=== PATIENT | male | born 1955 ===

== ENCOUNTER 2018-02-04 11:33 | Emergency (ER) | payer MEDICAID ==
[2018-02-04 11:43] VITALS: BMI 33.7
[2018-02-04 11:58] VITALS: RESP 20
[2018-02-04 12:16] LABS: BASO # 0.1 K/uL (0.0-0.2); EOS # 0.4 K/uL (0.0-0.7); EOS % 5.2 % (0.0-4.0); LYMPH # 1.7 K/uL (1.0-4.3); LYMPH % 23.9 % (20.0-40.0); MEAN CELL VOLUME 93.4 fL (80.0-94.0); MEAN CORPUSCULAR HEMOGLOBIN 31.7 pg (27.0-31.0); MEAN PLATELET VOLUME 8.2 fL (7.2-11.7); MONO # 0.5 K/uL (0.0-0.8); MONO % 7.3 % (0.0-10.0); NEUT # 4.4 K/uL (1.8-7.0); NEUT % 62.6 % (50.0-75.0); NRBC % 0.1 % (0.0-2.0); RBC 5.37 Mil/uL (4.40-5.90); RED CELL DISTRIBUTION WIDTH 14.3 % (11.5-14.5)
--- NOTE | 2018-02-04 12:25 | RAD ---
HISTORY: Shortness of breath COMPARISON: No prior. TECHNIQUE: Chest PA and lateral FINDINGS: LINES AND TUBES: None. LUNG AND PLEURA: The lungs are well inflated and clear. No pleural effusion or pneumothorax. HEART AND MEDIASTINUM: The heart is not enlarged. No aortic atherosclerotic calcification present. The hilar and mediastinal contours are within normal limits. SKELETAL STRUCTURES: The bony structures are within normal limits for the patient's age. VISUALIZED UPPER ABDOMEN: Normal. OTHER FINDINGS: None. IMPRESSION: No active pulmonary disease.
[2018-02-04 12:28] LABS: ALB/GLOB RATIO 1.3 (1.0-2.1); ALBUMIN 4.1 g/dL (3.5-5.0); ALT/SGPT 20 U/L (21-72); AST/SGOT 19 U/L (17-59); BLOOD UREA NITROGEN 14 mg/dL (9-20); CALCIUM 9.1 mg/dl (8.6-10.4); GFR NON-AFRICAN AMERICAN > 60
[2018-02-04] MEDS ORDERED: Albuterol-Ipratrop 3 mg / 0.5 (3 ml) UD INH STA ×2 (12:28→13:48)
--- NOTE | 2018-02-04 12:28 | C.PDOC ---
History Of Present Illness 62 year old male presents to the ED with complaints of a cough productive of white sputum that started 3 weeks ago after he got caught up in the rain. He also complains of chest pain when coughing and is not able to sleep because of the cough. Additionally, he complains of SOB on exertion, with decreased exercise tolerance of about 5-10 minutes. Patient visited his PMD last week and was prescribed a course of Zithromax with minimal relief. He has also been using his albuterol inhaler and nebulizer treatments at home with no significant improvement. Patient is a smoker. Denies any leg pain/swelling, fever, dizziness, nausea, and vomiting. Time Seen by Provider: 02/04/18 11:44 Chief Complaint (Nursing): Shortness Of Breath History Per: Patient History/Exam Limitations: no limitations Onset/Duration Of Symptoms: Days Current Symptoms Are (Timing): Still Present Current Respiratory Medications: Albuterol Associated Symptoms: Chest Pain, Productive Cough (white sputum). denies: Fever, Leg/Calf Pain, Dizziness Reports Recently: Treated By A Physician Recent travel outside of the [place]: No Past Medical History Reviewed: Historical Data, Nursing Documentation, Vital Signs Vital Signs: Last Vital Signs Temp 97.8 F 02/04/18 11:40 Pulse 79 02/04/18 11:57 Resp 20 02/04/18 11:57 BP 169/103 H 02/04/18 11:57 Pulse Ox 96 02/04/18 11:57 - Medical History PMH: Asthma, HTN Family History: States: No Known Family Hx - Social History Hx Alcohol Use: No Hx Substance Use: No Review Of Systems Constitutional: Positive for: Chills. Negative for: Fever Cardiovascular: Positive for: Chest Pain (when coughing). Negative for: Palpitations Respiratory: Positive for: Cough, SOB with Excertion, Sputum Gastrointestinal: Negative for: Nausea, Vomiting, Diarrhea Neurological: Negative for: Weakness, Numbness, Dizziness Physical Exam - Physical Exam Appears: Non-toxic, No Acute Distress Skin: Normal Color, Warm, Dry Head: Atraumatic, Normacephalic Eye(s): bilateral: PERRL, EOMI Oral Mucosa: Moist Neck: Normal ROM, Supple Chest: Symmetrical, No Tenderness Cardiovascular: Rhythm Regular, No Murmur Respiratory: Decreased Breath Sounds, No Accessory Muscle Use, Rhonchi (scattered), Wheezing (Bilateral inspiratory and expiratory wheezing, worse on expiration) Gastrointestinal/Abdominal: Bowel Sounds, Soft, No Tenderness, No Distention Back: No CVA Tenderness Extremity: Normal ROM, No Pedal Edema, No Calf Tenderness, No Swelling Extremity: Bilateral: Atraumatic Neurological/Psych: Oriented x3, Normal Speech, Normal Cognition Gait: Steady ED Course And Treatment - Laboratory Results Result Diagrams: 02/04/18 12:11 02/04/18 12:11 O2 Sat by Pulse Oximetry: 96 (RA) Pulse Ox Interpretation: Normal - Radiology CXR: Viewed By Me, Read By Radiologist CXR Interpretation: Yes: No Acute Disease Medical Decision Making Medical Decision Making: Impression: 62 year old male presents to the ED with cough and SOB for 3 weeks. Will consider asthma vs COPD exacerbation, r/o CHF Plan: -EKG -B-Type Natriuretic Peptide -CMP -Troponin I -CBC -CXR -Albuterol 3 ml -Methylpredinsolone 125 mg -Nebulizer Treatment -Peak Flow Pre/Post Differential Diagnosis: CXR is negative. 1345 pt with some wheezing still after steroids nd neb, another neb ordered as well as peak flow. 1525 pt still with wheezing in [place] with dec breath sounds. o2 sat 91 on room air, pt with pf of 200 with fair effort. pt offered admission and adamantly refuses to stay. risks and benefits of ama including respiratory distress, disability and explained to patient in presence of GRADY Barriga and pt's . pt sts he will follow up with Dr Wilson/med clinic next week 02/09 at schedule appointment. pt advised he may return at any time for treatments. Disposition Counseled Patient/Family Regarding: Studies Performed, Diagnosis, Need For Followup, Rx Given - Disposition Referrals: Gloria Wilson MD [Staff Provider] - [facility] at [facility] [Outside] Bj Fernandes MD [Staff Provider] - Disposition: AGAINST MEDICAL ADVICE Disposition Time: 15:28 Condition: FAIR Additional Instructions: Please take prednisone as prescribed. Use nebulizer machine 2 times a day. Carry inhaler with you and use 2 puffs every 4-6 hours if short of breath. Use inhaler 1-2 times per day. Recommend you get Pulmonary function tests; may need referral from Dr Wilson to pulmonology or make your ow appointment with loan manager if possible. Prescriptions: Albuterol 0.083% [Albuterol 0.083% Inhal Barbara (2.5 mg/3 ml) UD] 2.5 mg IH BID #100 neb Albuterol HFA [Ventolin HFA 90 mcg/actuation (8 g)] 2 puff IH Q6 #1 inhaler predniSONE [predniSONE Tab] 40 mg PO DAILY #10 tab Instructions: High Blood Pressure (DC), Exacerbation of COPD (DC) Forms: [employer] [facility] (Sami), General Discharge Instructions Print Language: DANISH - Clinical Impression Clinical Impression: COPD with acute exacerbation, Hypertension, Left against medical advice - PA / QUALITY CONTROL OPERATOR / Resident Statement MD/DO has reviewed & agrees with the documentation as recorded. - Scribe Statement The provider has reviewed the documentation as recorded by the Scribe (Jacki Lorenzo) All medical record entries made by the Scribe were at my direction and personally dictated by me. I have reviewed the chart and agree that the record accurately reflects my personal performance of the history, physical exam, medical decision making, and the department course for this patient. I have also personally directed, reviewed, and agree with the discharge instructions and disposition.
[2018-02-04] MEDS ORDERED: MethylPREDNISolone 40 mg Vial IVP STA (12:29)
[2018-02-04] MEDS ORDERED: Albuterol-Ipratrop 3 mg / 0.5 (3 ml) UD ONE ×2 (12:51→13:53)
[2018-02-04 14:40] VITALS: TEMP 98.5
[2018-02-04 15:09] VITALS: BP 175/94; PULSE 83
[2018-02-04 15:28] VITALS: O2SAT 96
== END 2018-02-04 15:46 | disposition left against medical advice (07) ==
LOC: C.ER 11:33
DX: I10 Essential (primary) hypertension (principal); F17.210 Nicotine dependence, cigarettes, uncomplicated; J44.1 Chronic obstructive pulmonary disease with (acute) exacerbation
CPT/HCPCS: 71046; 80053; 83880; 84484; 85025; 94640; 96374; 99285; J2920

== ENCOUNTER 2018-02-06 10:10 | Emergency (ER) | payer MEDICAID ==
[2018-02-06 10:10] VITALS: BMI 33.7
[2018-02-06 10:46] VITALS: O2SAT 97
[2018-02-06] MEDS ORDERED: Albuterol-Ipratrop 3 mg / 0.5 (3 ml) UD INH STA (11:01)
[2018-02-06] MEDS ORDERED: Albuterol-Ipratrop 3 mg / 0.5 (3 ml) UD ONE ×2 (11:07→11:20)
[2018-02-06 12:25] VITALS: BP 145/79; PULSE 92; RESP 18; TEMP 98.5
--- NOTE | 2018-02-06 12:48 | C.PDOC ---
History Of Present Illness 62 years old male presents to ED for complaints of persistent cough that began 3 days ago. Patient states he was seen 3 days ago for COPD exacerbation which has improved however he has been having continuous cough with no improvement. Patient has Hx of 45 packs a year and currently states 1 pack per day. Denies any other physical complaints. Chief Complaint (Nursing): Shortness Of Breath History Per: Patient History/Exam Limitations: no limitations Onset/Duration Of Symptoms: Hrs Current Symptoms Are (Timing): Still Present Current Respiratory Medications: See Home Med List Associated Symptoms: denies: Fever, Chills Recent travel outside of the [place]: No Past Medical History Reviewed: Historical Data, Nursing Documentation, Vital Signs Vital Signs: Last Vital Signs Temp 98.5 F 02/06/18 12:23 Pulse 92 H 02/06/18 12:23 Resp 18 02/06/18 12:23 BP 145/79 02/06/18 12:23 Pulse Ox 97 02/06/18 12:23 - Medical History PMH: Asthma, HTN Surgical History: No Surg Hx Family History: States: No Known Family Hx - Social History Hx Alcohol Use: No Hx Substance Use: No - Immunization History Hx Tetanus Toxoid Vaccination: No Hx Influenza Vaccination: No Hx Pneumococcal Vaccination: No Review Of Systems Constitutional: Negative for: Fever, Chills Respiratory: Positive for: Cough Gastrointestinal: Negative for: Nausea, Vomiting, Abdominal Pain, Diarrhea Skin: Negative for: Rash Neurological: Negative for: Weakness, Numbness Physical Exam - Physical Exam Appears: Well, Non-toxic, No Acute Distress Skin: Normal Color, Warm, Dry, No Rash Head: Atraumatic, Normacephalic Eye(s): bilateral: Normal Inspection, PERRL, EOMI Oral Mucosa: Moist Throat: Normal, No Erythema, No Exudate, No Drooling, No Mass Neck: Normal ROM, Supple Chest: Symmetrical, No Tenderness Cardiovascular: Rhythm Regular, No Murmur Respiratory: No Decreased Breath Sounds, No Rales, No Rhonchi, Wheezing (Minimal expiratory bilaterally ) Gastrointestinal/Abdominal: Normal Exam, Bowel Sounds (Active ), Soft, No Tenderness, No Guarding, No Rebound Extremity: Bilateral: Atraumatic, Normal Color And Temperature, Normal ROM Pulses: Left Radial: Normal, Right Radial: Normal Neurological/Psych: Oriented x3, Normal Speech Gait: Steady ED Course And Treatment O2 Sat by Pulse Oximetry: 97 (RA) Pulse Ox Interpretation: Normal - Other Rad CXR X-Ray: Viewed By Me, Read By Radiologist Interpretation: Date of service: 02/06/2018. HISTORY: cough r/o infiltrate. COMPARISON: 02/04/2018. TECHNIQUE: Chest PA and lateral. FINDINGS: LUNGS: Mild patchy increased markings and/or linear consolidation at the left lung base. Upper lobe granulomatous changes. Small nodular density at the right lung base may represent vessel on end. PLEURA: No significant pleural effusion identified. No pneumothorax apparent. CARDIOVASCULAR: No atherosclerotic calcification present. Tortuous ectatic aorta. OSSEOUS STRUCTURES: Degenerative changes in the spine. Paravertebral osteophytosis in the spine. VISUALIZED UPPER ABDOMEN: Normal. OTHER FINDINGS: None. IMPRESSION: Mild patchy increased markings and/or linear consolidation at the left lung base. Upper lobe granulomatous changes. Small nodular density at the right lung base may represent vessel on end. Medical Decision Making Medical Decision Making: Plan: * CXR * Albuterol Re-Evaluation: Patient's lungs are clear, he states he currently feels better after treatment. Patient is stable for discharged. Instructed to return if symptoms persist or worsen. Disposition - Disposition Referrals: [facility]ajero, [Non-Staff] - Disposition: HOME/ ROUTINE Disposition Time: 11:50 Condition: IMPROVED Additional Instructions: CARLO JACKSON, thank you for letting us take care of you today. The emergency medical care you received today was directed at your acute symptoms. If you were prescribed any medication, please fill it and take as directed. It may take several days for your symptoms to resolve. Return to the Emergency Department if your symptoms worsen, do not improve, or if you have any other problems. Please contact your doctor or call one of the physicians/clinics you have been referred to that are listed on the Patient Visit Information form that is included in your discharge packet. Bring any paperwork you were given at discharge with you along with any medications you are taking to your follow up visit. Our treatment cannot replace ongoing medical care by a primary care provider outside of the emergency department. Thank you for allowing the [facility] team to be part of your care today. Follow up with physicians that you were referred to at the previous ED visit. Prescriptions: Benzonatate [Tessalon Perle] 100 mg PO Q8 PRN #15 capsule PRN Reason: Cough Instructions: COPD Including Emphysema (DC), Quitting Smoking Forms: [employer] (Lao) - Clinical Impression Clinical Impression: COPD with acute exacerbation - Scribe Statement The provider has reviewed the documentation as recorded by the Silvanoibdavid De Santiago All medical record entries made by the Scribe were at my direction and personally dictated by me. I have reviewed the chart and agree that the record accurately reflects my personal performance of the history, physical exam, medical decision making, and the department course for this patient. I have also personally directed, reviewed, and agree with the discharge instructions and disposition.
--- NOTE | 2018-02-06 15:59 | RAD ---
Date of service: 02/06/2018 HISTORY: cough r/o infiltrate COMPARISON: 02/04/2018 TECHNIQUE: Chest PA and lateral FINDINGS: LUNGS: Mild patchy increased markings and/or linear consolidation at the left lung base. Upper lobe granulomatous changes. Small nodular density at the right lung base may represent vessel on end. PLEURA: No significant pleural effusion identified. No pneumothorax apparent. CARDIOVASCULAR: No atherosclerotic calcification present Tortuous ectatic aorta. OSSEOUS STRUCTURES: Degenerative changes in the spine. Paravertebral osteophytosis in the spine. VISUALIZED UPPER ABDOMEN: Normal. OTHER FINDINGS: None. IMPRESSION: Mild patchy increased markings and/or linear consolidation at the left lung base. Upper lobe granulomatous changes. Small nodular density at the right lung base may represent vessel on end.
== END 2018-02-06 12:23 | disposition home or self-care (01) ==
LOC: C.ER 10:10
DX: J44.1 Chronic obstructive pulmonary disease with (acute) exacerbation (principal); F17.210 Nicotine dependence, cigarettes, uncomplicated

== ENCOUNTER 2018-05-19 09:30 | Emergency (ER) | payer MEDICAID ==
[2018-05-19 09:31] VITALS: BMI 33.7
[2018-05-19 09:41] VITALS: BP 201/106; PULSE 83; RESP 20; TEMP 97.5; O2SAT 97
[2018-05-19] MEDS ORDERED: Naproxen 550 mg Tab PO STA (10:02)
[2018-05-19] MEDS ORDERED: Aluminum Hydroxide/Magnesium Hydroxide Susp (30 mL) PO STA (10:02)
[2018-05-19] MEDS ORDERED: Aluminum Hydroxide/Magnesium Hydroxide Susp (30 mL) ONE (10:08)
[2018-05-19] MEDS ORDERED: Naproxen 550 mg Tab PO ONE (10:08)
--- NOTE | 2018-05-19 10:12 | C.PDOC ---
History Of Present Illness 62 y/o male,w/PMhx of HTN and osteoarthritis, presents to the ER complaining of right knee pain and swelling which began today. 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 Patient reports that the pain is worse when it's cold. He notes that the knee is " clicking and locked in place." He has Naproxen medication, however he did not take the medication because it is from 2018.Denies having fever and chills.Of note, patient's blood pressure is currently elevated in the ER. Time Seen by Provider: 05/19/18 09:36 Chief Complaint (Nursing): Lower Extremity Problem/Injury History Per: Patient History/Exam Limitations: no limitations Onset/Duration Of Symptoms: Days Current Symptoms Are (Timing): Still Present Severity: Moderate Past Medical History Reviewed: Historical Data, Nursing Documentation, Vital Signs Vital Signs: Last Vital Signs Temp 97.5 F L 05/19/18 09:40 Pulse 83 05/19/18 09:40 Resp 20 05/19/18 09:40 BP 201/106 H 05/19/18 09:40 Pulse Ox 97 05/19/18 09:40 - Medical History PMH: Asthma, HTN Surgical History: No Surg Hx Family History: States: No Known Family Hx - Social History Hx Alcohol Use: No Hx Substance Use: No - Immunization History Hx Tetanus Toxoid Vaccination: No Hx Influenza Vaccination: No Hx Pneumococcal Vaccination: No Review Of Systems Except As Marked, All Systems Reviewed And Found Negative. Constitutional: Negative for: Fever, Chills Musculoskeletal: Positive for: Other (right knee pain) Neurological: Negative for: Weakness, Numbness Physical Exam - Physical Exam Appears: Non-toxic, No Acute Distress Skin: Normal Color, Warm, Dry Head: Atraumatic, Normacephalic Nose: Normal Oral Mucosa: Moist Neck: Supple Chest: Symmetrical Cardiovascular: Rhythm Regular Extremity: No Normal ROM (mild decreased ROM in right knee), No Tenderness, No Swelling Neurological/Psych: Oriented x3, Normal Speech, Normal Motor, Normal Sensation ED Course And Treatment O2 Sat by Pulse Oximetry: 97 (RA) Pulse Ox Interpretation: Normal Medical Decision Making Medical Decision Making: Plan: --Maalox PO --Naproxen PO Disposition Counseled Patient/Family Regarding: Diagnosis, Need For Followup, Rx Given, Smoking Cessation - Disposition Referrals: [facility] at [facility] [Outside] Tano Brenner MD [Staff Provider] - Disposition: HOME/ ROUTINE Disposition Time: 10:10 Condition: STABLE Prescriptions: Naproxen [Naprosyn] 1 tab PO BID PRN #25 tab PRN Reason: Pain Instructions: Osteoarthritis (DC) Forms: [facility] (Emirati), Gen Discharge Inst Emirati Print Language: FILIPINO - POA Present On Arrival: None - Clinical Impression Clinical Impression: Knee pain, right, Arthritis - Scribe Statement The provider has reviewed the documentation as recorded by the Patrick Adamson Provider Attestation: All medical record entries made by the Patrick were at my direction and personally dictated by me. I have reviewed the chart and agree that the record accurately reflects my personal performance of the history, physical exam, medical decision making, and the department course for this patient. I have also personally directed, reviewed, and agree with the discharge instructions and disposition.
== END 2018-05-19 10:30 | disposition home or self-care (01) ==
LOC: C.ER 09:30
DX: M25.561 Pain in right knee (principal); M17.11 Unilateral primary osteoarthritis, right knee

== ENCOUNTER 2018-08-26 12:28 | Emergency (ER) | payer MEDICAID ==
[2018-08-26 12:34] VITALS: BMI 31.4
--- NOTE | 2018-08-26 13:25 | C.PDOC ---
History Of Present Illness 63 year old male presents to ED with complaint of pain to his left side s/p fall that occurred 8 days ago. Patient states that he lost his balance and fell onto his left side. Patient has PMHx of arthritis to his bilateral knees. He states that he feels pain to his left side with cough, quick movements, and when he sneezes. His PMD is Dr. Wilson. He states that he has never taken any medication for his arthritis. Patient denies SOB, fever, chills, cough, hematuria, dysuria, or dark/bloody stools. Chief Complaint (Nursing): Abdominal Pain History Per: Patient History/Exam Limitations: no limitations Onset/Duration Of Symptoms: Days (8) Current Symptoms Are (Timing): Still Present Location Of Pain/Discomfort: LUQ, LLQ Radiation Of Pain To:: None Quality Of Discomfort: "Pain" Associated Symptoms: denies: Fever, Chills, Nausea, Vomiting, Diarrhea, Urinary Symptoms Exacerbating Factors: Movement, Deep Breaths Alleviating Factors: None Past Medical History Reviewed: Historical Data, Nursing Documentation, Vital Signs Vital Signs: Last Vital Signs Temp 99 F 08/26/18 12:34 Pulse 88 08/26/18 12:34 Resp 20 08/26/18 12:34 BP 159/114 H 08/26/18 12:34 Pulse Ox 96 08/26/18 12:34 Primary Care Provider: Gloria Wilosn - Medical History PMH: Asthma, HTN Surgical History: No Surg Hx Family History: States: Unknown Family Hx - Social History Hx Alcohol Use: No Hx Substance Use: No - Immunization History Hx Tetanus Toxoid Vaccination: No Hx Influenza Vaccination: No Hx Pneumococcal Vaccination: No Review Of Systems Except As Marked, All Systems Reviewed And Found Negative. Gastrointestinal: Positive for: Abdominal Pain (left-sided abdominal pain ) Musculoskeletal: Positive for: Leg Pain (chronic bilateral knee pain ) Physical Exam - Physical Exam Appears: Well, Non-toxic, No Acute Distress Skin: Normal Color, Warm, Dry Head: Atraumatic, Normacephalic Eye(s): bilateral: Normal Inspection (Conjunctiva clear), PERRL, EOMI Oral Mucosa: Moist Neck: Normal ROM, Supple Chest: Symmetrical, No Deformity, Tenderness (left-sided rib-cage tenderness) Cardiovascular: Rhythm Regular, No Murmur Respiratory: No Accessory Muscle Use, No Rales, Rhonchi (mild scattered rhonchi), No Wheezing Gastrointestinal/Abdominal: Soft, Tenderness (left-sided tenderness), No Distention, No Guarding, No Rebound, Other (obese) Back: No CVA Tenderness Extremity: Capillary Refill (<2 seconds) Extremity: Bilateral: Atraumatic, Normal Color And Temperature, Normal ROM, Other (no cyanosis or edema) Pulses: Left Dorsalis Pedis: Normal, Right Dorsalis Pedis: Normal Neurological/Psych: Oriented x3, Normal Cranial Nerves, Normal Motor, Normal Sensation Gait: Steady ED Course And Treatment - Laboratory Results Result Diagrams: 08/26/18 15:10 08/26/18 15:10 O2 Sat by Pulse Oximetry: 96 (in RA) Pulse Ox Interpretation: Normal Medical Decision Making Medical Decision Making: Impression: 63 year old male presents to ED with complaint of pain to his left side s/p fall that occurred 8 days ago. Initial Plan: CT Chest/Abdomen/Pelvis CMP CBC Disposition Counseled Patient/Family Regarding: Studies Performed, Diagnosis, Need For Followup - Disposition Referrals: [facility] at [facility] [Outside] Disposition: HOME/ ROUTINE Disposition Time: 17:26 Condition: GOOD Instructions: Contusion (DC), Bruised Rib (DC) Forms: [facility] (Guatemalan), General Discharge Instructions - POA Present On Arrival: None - Clinical Impression Clinical Impression: Contusion of rib on left side, Abdominal wall pain - Scribe Statement The provider has reviewed the documentation as recorded by the Scribe (Betsy Bright) All medical record entries made by the Scribe were at my direction and personally dictated by me. I have reviewed the chart and agree that the record accurately reflects my personal performance of the history, physical exam, medical decision making, and the department course for this patient. I have also personally directed, reviewed, and agree with the discharge instructions and disposition.
[2018-08-26 15:14] LABS: BASO # 0.1 K/uL (0.0-0.2); EOS # 0.4 K/uL (0.0-0.7); EOS % 4.7 % (0.0-4.0); HEMOGLOBIN 16.9 g/dL (12.0-18.0); LYMPH # 1.8 K/uL (1.0-4.3); LYMPH % 23.4 % (20.0-40.0); MEAN CELL VOLUME 94.8 fL (80.0-94.0); MEAN CORPUSCULAR HEMOGLOBIN 32.4 pg (27.0-31.0); MEAN CORPUSCULAR HGB CONC 34.2 g/dL (33.0-37.0); MEAN PLATELET VOLUME 7.6 fL (7.2-11.7); MONO # 0.7 K/uL (0.0-0.8); MONO % 9.4 % (0.0-10.0); NEUT # 4.8 K/uL (1.8-7.0); NEUT % 61.5 % (50.0-75.0); RBC 5.21 Mil/uL (4.40-5.90); WHITE BLOOD COUNT 7.8 K/uL (4.8-10.8)
[2018-08-26 15:28] LABS: ALB/GLOB RATIO 1.4 (1.0-2.1); ALBUMIN 4.3 g/dL (3.5-5.0); ALT/SGPT 23 U/L (21-72); AST/SGOT 22 U/L (17-59); BLOOD UREA NITROGEN 15 mg/dL (9-20); CALCIUM 9.5 mg/dl (8.6-10.4); GFR NON-AFRICAN AMERICAN > 60
--- NOTE | 2018-08-26 17:01 | CT ---
Date of service: 08/26/2018 PROCEDURE: CT Chest, Abdomen and Pelvis with intravenous contrast HISTORY: trauma COMPARISON: None available. TECHNIQUE: IV dose administered: 100 mL Visipaque 320 Radiation dose: Total exam DLP = 1707.42 mGy-cm. This CT exam was performed using one or more of the following dose reduction techniques: Automated exposure control, adjustment of the mA and/or kV according to patient size, and/or use of iterative reconstruction technique. FINDINGS: CT CHEST WITH CONTRAST: LUNGS: Clear. No nodule, mass or consolidation. MEDIASTINUM: Mild aneurysmal dilatation of the ascending thoracic aorta to a diameter of 4.2 cm. Normal caliber of the pulmonary arterial trunk. Normal heart size. Multiple thyroid nodules. Correlate with thyroid ultrasound examination. Normal heart size. LYMPH NODES: Unremarkable. PLEURA: Unremarkable. No pneumothorax. No pleural fluid. BONES: Unremarkable. OTHER FINDINGS: None. CT ABDOMEN AND PELVIS: LIVER: Normal size, contour and attenuation. Nonspecific 9 mm low-attenuation lesion in the right lobe of liver. No other mass. No biliary dilatation. GALLBLADDER AND BILE DUCTS: Unremarkable. PANCREAS: Unremarkable. No gross lesion or ductal dilatation. SPLEEN: Unremarkable. ADRENALS: Left adrenal mass, 3.2 cm diameter. The attenuation measurement is not meaningful postcontrast administration. Consider correlation with opposed phase magnetic resonance imaging. KIDNEYS AND URETERS: Bilateral extrarenal pelvis. 2.3 cm rounded low-density mass mid left kidney, 13 Hounsfield units. Likely cyst. At least 3 punctate 1-2 mm nonobstructing right renal calculi. No left renal calculus. No hydronephrosis. No hydroureter or ureteral calculus. VASCULATURE: No aortic atherosclerotic calcification or mural plaque present. There is atherosclerotic calcification of the abdominal aorta. BOWEL: There is diverticulosis of the descending and sigmoid colon without evidence of diverticulitis. No bowel obstruction. No other abnormal bowel loops are appreciated. APPENDIX: Not identified. No secondary findings. PERITONEUM: Unremarkable. No free fluid. No free air. LYMPH NODES: . Unremarkable. No enlarged lymph nodes. BLADDER: Unremarkable. REPRODUCTIVE: Normal prostate BONES: No acute fracture. OTHER FINDINGS: None. IMPRESSION: Multiple tiny non-obstructing right renal calculi. No hydronephrosis. No hydroureter or ureteral calculus. 3.2 cm left adrenal mass. Correlate with opposed phase MR imaging. Multiple thyroid nodules. Correlate with thyroid ultrasound examination. Aneurysmal dilatation of the ascending thoracic aorta. Additional nonacute findings as above
[2018-08-26 18:18] VITALS: BP 179/99; PULSE 75; RESP 15; TEMP 97.5; O2SAT 97
== END 2018-08-26 18:18 | disposition home or self-care (01) ==
LOC: C.ER 12:28
DX: S20.212A Contusion of left front wall of thorax, initial encounter (principal); W18.30XA Fall on same level, unspecified, initial encounter; R10.12 Left upper quadrant pain

== ENCOUNTER 2018-09-09 10:08 | Emergency (ER) | payer MEDICAID | END 2018-09-09 15:50 | disposition home or self-care (01) | LOC: C.ER 10:08 ==